=== PATIENT | female | born 1990 | race Caucasian/White ===

== ENCOUNTER 2019-08-31 05:44 | Emergency (ER) | payer OTHER ==
[2019-08-31 05:53] VITALS: BP 131/84
[2019-08-31] MEDS ORDERED: CEFTRIAXONE INJ 1000 MG VIAL IM ONE (06:41)
[2019-08-31] MEDS ORDERED: LIDOCAINE 1% INJ-PF (10 MG/ML) 30 ML SDV NEB ONE (06:41)
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
== END 2019-08-31 07:31 | disposition home or self-care (01) ==
LOC: ER 05:44
DX: K02.9 Dental caries, unspecified (principal); R11.2 Nausea with vomiting, unspecified; Z90.710 Acquired absence of both cervix and uterus
CPT/HCPCS: 94640; 99282; 96372; J3490; J0696